=== PATIENT | male | born 1955 | race Caucasian/White ===

== ENCOUNTER 2017-04-08 17:07 | Inpatient (IN) | payer MEDICARE, MEDICAID ==
[~2017-04-08] VITALS: Ht 188 cm; Wt 88.5 kg
[2017-04-08] MEDS ORDERED: ARIP30TA3 PO (17:26)
[2017-04-08] MEDS ORDERED: CYAN10009 PO (17:26)
[2017-04-08] MEDS ORDERED: DIVA500T2 PO (17:26)
[2017-04-08] MEDS ORDERED: MULT-213 PO (17:26)
[2017-04-08] MEDS ORDERED: HYDR50CA PO (17:26)
[2017-04-08] MEDS ORDERED: ACET-868 PO (17:26)
[2017-04-08] MEDS ORDERED: TEMA30CA5 PO (17:26)
[2017-04-08] MEDS ORDERED: TRIA1CAP6 PO (17:26)
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
[2017-04-08 17:52] VITALS: BP 155/69
[2017-04-08] MEDS ORDERED: MAGNESIUM HYDROXIDE 30 ML UDC PO PRN (18:00)
[2017-04-08] MEDS ORDERED: MAG HYDROX/AL HYDROX/SIMETH 30 ML UDC PO PRN (18:00)
[2017-04-08] MEDS ORDERED: ACETAMINOPHEN 325 MG TABLET PO PRN (18:00)
[2017-04-08] MEDS ORDERED: LORAZEPAM 0.5 MG TABLET PO PRN (18:00)
[2017-04-08 18:18] VITALS: BP 155/69
[2017-04-08 19:47] VITALS: BP 117/62
--- NOTE | 2017-04-09 01:42 | NUR ---
Pt has been withdrawn & evasive but interacts when engaged.
[2017-04-09] MEDS: ACETAMINOPHEN 325 MG TABLET PO PRN ×2 (02:23→17:45)
[2017-04-09] MEDS: TEMAZEPAM 7.5 MG CAPSULE PO PRN (02:23)
[2017-04-09 06:53] LABS: CHOLESTEROL 156 mg/dL (<200); HDL CHOLESTEROL 42 mg/dL (40-60); LDL 101 mg/dL (0-99); TRIGLYCERIDES 74 mg/dL (30-150)
[2017-04-09 06:59] LABS: ALBUMIN 2.3 g/dL (3.4-5.0); BILIRUBIN,TOTAL 0.4 mg/dL (0.2-1.0); CALCIUM, SERUM 8.4 mg/dL (8.5-10.1); CREATININE 0.6 mg/dL (0.6-1.3); TOTAL PROTEIN, SERUM 6.2 g/dL (6.4-8.2)
[2017-04-09 08:00] VITALS: BP 111/53
[2017-04-09] MEDS: TRIAMTERENE/HYDROCHLOROTHIAZID (37.5/25MG) 1 UDCAP PO SCH (08:30)
[2017-04-09] MEDS: CYANOCOBALAMIN 500 MCG TABLET PO SCH (08:30)
[2017-04-09] MEDS: MULTIVIT, IRON, MIN NO. 8, FA 1 TAB PO SCH (08:30)
[2017-04-09 16:00] VITALS: BP 133/81
--- NOTE | 2017-04-09 16:00 | NUR ---
GPS/RN PATIENT NOTED WITH REDNESS/RASH ON BACK, WOUND CONSULT ORDERED, PICTURE TAKEN.
[2017-04-09] MEDS: BENZTROPINE MESYLATE (1 MG) 1 MG TABLET PO SCH (16:38)
[2017-04-09] MEDS: HALOPERIDOL 5 MG TABLET PO SCH (16:39)
--- NOTE | 2017-04-09 16:39 | NUR ---
GPS/RN PATIENT REFUSED HALDOL 5 MG PO AND COGENTIN 1 MG PO X 3, EXPLAINED RISKS AND BENEFITS, WILL CONTINUE TO ENCOURAGE TO COMPLY WITH MD REGIMEN.
[2017-04-09 20:06] VITALS: BP 108/73
[2017-04-10] MEDS: ACETAMINOPHEN 325 MG TABLET PO PRN (06:14)
[2017-04-10 08:00] VITALS: BP 146/67
[2017-04-10] MEDS: MULTIVIT, IRON, MIN NO. 8, FA 1 TAB PO SCH (08:22)
[2017-04-10] MEDS: CYANOCOBALAMIN 500 MCG TABLET PO SCH (08:22)
[2017-04-10] MEDS: TRIAMTERENE/HYDROCHLOROTHIAZID (37.5/25MG) 1 UDCAP PO SCH (08:22)
[2017-04-10] MEDS: BENZTROPINE MESYLATE (1 MG) 1 MG TABLET PO SCH ×2 (09:00→16:37)
[2017-04-10] MEDS: HALOPERIDOL 5 MG TABLET PO SCH ×2 (09:00→16:37)
--- NOTE | 2017-04-10 12:15 | NUR ---
WOUND CARE CONSULT WOUND CARE RECEIVED CONSULT FOR BACK RASH. WOUND CARE WILL DEFER TO MD FOR THE RASH. ALL DISCUSSED WITH RN.
[2017-04-10 20:00] VITALS: BP 117/56
[2017-04-10 23:00] VITALS: BP 120/62
--- NOTE | 2017-04-11 08:45 | NUR ---
Initial Discharge Note: Patient states that the address listed on facesheet [[address] [place] [address]] is his mother's house and that he lived their with her until she recently. Patient states that he then moved to a board and care, but cannot recall address.. Patient does not wish to return there. Patient states that he wants to live in another board and care, preferably in the [facility]. Patient to follow up with MD and facilitate safe and proper discharge.
[2017-04-11] MEDS: CYANOCOBALAMIN 500 MCG TABLET PO SCH ×2 (09:00→09:01)
[2017-04-11] MEDS: TRIAMTERENE/HYDROCHLOROTHIAZID (37.5/25MG) 1 UDCAP PO SCH (09:00)
[2017-04-11] MEDS: MULTIVIT, IRON, MIN NO. 8, FA 1 TAB PO SCH (09:00)
[2017-04-11] MEDS: HALOPERIDOL 5 MG TABLET PO SCH ×2 (09:00→17:00)
[2017-04-11] MEDS: BENZTROPINE MESYLATE (1 MG) 1 MG TABLET PO SCH ×2 (09:00→17:00)
--- NOTE | 2017-04-11 10:27 | NUR ---
Discharge Planning: ZORAIDA contacted Johnny from [employer], a free placement referral agency. ZORAIDA asked Johnny if she will be able to assess patient and connect him with a board and care. Johnny stated that she will assess this week and that the agency had already begun making calls to lower-income board and cares. SW to follow up.
[2017-04-11 11:21] VITALS: BP 119/72
--- NOTE | 2017-04-11 13:56 | NUR ---
Discharge Planning: ZORAIDA spoke with Junaid, who manages several board and cares and assisted living facility. ZORAIDA provided some background on the patient. Junaid stated that he will assess patient this week and that he has several facilities that will be able to accommodate patient on his current income.
[2017-04-11 16:00] VITALS: BP 123/98
[2017-04-11] MEDS: ACETAMINOPHEN 325 MG TABLET PO PRN (16:56)
--- NOTE | 2017-04-11 17:07 | NUR ---
patient c/o back pain level 8/10 Tylenol 650mg given with continue to monitor .
[2017-04-11 20:55] VITALS: BP 118/70
[2017-04-11] MEDS: TEMAZEPAM 7.5 MG CAPSULE PO PRN (21:10)
[2017-04-12] MEDS: ACETAMINOPHEN 325 MG TABLET PO PRN (00:44)
--- NOTE | 2017-04-12 00:44 | NUR ---
GPS RN NOTE, PATIENT HAS A COMPLAINT OF LOWER BACK PAIN AT 5 OUT 10 ON THE PAIN SCALE AND IS REQUESTING TYLENOL AT THIS TIME. PATIENT VITAL SIGNS ARE STABLE. GAVE TYLENOL 650 MG PO Q6HR PRN ORDERED. WILL REASSESS PAIN AND I WILL CONTINUE TO MONITOR THIS PATIENT.
--- NOTE | 2017-04-12 00:54 | NUR ---
GPS RN NOTE, PATIENT HAS A COMPLAINT OF LOWER BACK PAIN AT 8 OUT 10 ON THE PAIN SCALE AND IS REQUESTING SOMETHING STRONGER THAN TYLENOL. PAGED [facility] AND INFORMED DR ZALDIVAR OF MY FINDINGS. DR ZALDIVAR ORDERED TRAMADOL 50 MG PO Q8HR PRN. ALL ORDERS NOTED AND CARRIED OUT WILL CONTINUE TO MONITOR THIS PATIENT.
[2017-04-12] MEDS ORDERED: TRAMADOL HCL 50 MG TABLET ONE (00:59)
[2017-04-12] MEDS: TRAMADOL HCL 50 MG TABLET PO PRN ×2 (01:01→09:57)
--- NOTE | 2017-04-12 01:01 | NUR ---
GPS RN NOTE, PATIENT HAS A COMPLAINT OF CHRONIC LOWER BACK PAIN AT 7 OUT 10 ON THE PAIN SCALE. PATIENT VITAL SIGNS ARE STABLE. GAVE TRAMADOL 50 MG PO Q8HR PRN ORDERED. WILL REASSESS PAIN AND I WILL CONTINUE TO MONITOR THIS PATIENT.
[2017-04-12] MEDS: BENZTROPINE MESYLATE (1 MG) 1 MG TABLET PO SCH ×2 (08:10→17:36)
[2017-04-12] MEDS: TRIAMTERENE/HYDROCHLOROTHIAZID (37.5/25MG) 1 UDCAP PO SCH (08:10)
[2017-04-12] MEDS: HALOPERIDOL 5 MG TABLET PO SCH ×2 (08:11→17:36)
[2017-04-12] MEDS: CYANOCOBALAMIN 500 MCG TABLET PO SCH (08:11)
[2017-04-12] MEDS: MULTIVIT, IRON, MIN NO. 8, FA 1 TAB PO SCH (08:11)
[2017-04-12 08:22] VITALS: BP 132/80
--- NOTE | 2017-04-12 09:57 | NUR ---
GPS/RN PATIENT REPORTS 7/10 PAIN IN LOWER BACK, ADMINISTERED TRAMADOL 50 MG PER PATIENT REQUEST. WILL CONTINUE TO MONITOR.
[2017-04-12] MEDS ORDERED: HALOPERIDOL LACTATE INJ 5 MG/ML VIAL IM PRN (15:00)
[2017-04-12] MEDS ORDERED: BENZTROPINE MESYLATE (2MG/2ML) 2 MG/2 ML AMPUL IM PRN (15:00)
[2017-04-12 16:42] VITALS: BP 127/64
[2017-04-12 19:49] VITALS: BP 119/65
[2017-04-12 20:00] VITALS: BP 119/65
[2017-04-13] MEDS: TEMAZEPAM 7.5 MG CAPSULE PO PRN (00:49)
[2017-04-13] MEDS: TRAMADOL HCL 50 MG TABLET PO PRN ×2 (00:49→18:14)
[2017-04-13 08:00] VITALS: BP 106/66
[2017-04-13] MEDS: HALOPERIDOL 5 MG TABLET PO SCH ×2 (10:49→17:10)
[2017-04-13] MEDS: MULTIVIT, IRON, MIN NO. 8, FA 1 TAB PO SCH (10:49)
[2017-04-13] MEDS: CYANOCOBALAMIN 500 MCG TABLET PO SCH (10:50)
[2017-04-13] MEDS: BENZTROPINE MESYLATE (1 MG) 1 MG TABLET PO SCH ×2 (10:50→18:13)
[2017-04-13] MEDS: TRIAMTERENE/HYDROCHLOROTHIAZID (37.5/25MG) 1 UDCAP PO SCH (10:50)
[2017-04-13 15:42] VITALS: BP 111/66
[2017-04-13 20:00] VITALS: BP 101/56
[2017-04-14] MEDS: TRAMADOL HCL 50 MG TABLET PO PRN (07:59)
[2017-04-14] MEDS: CYANOCOBALAMIN 500 MCG TABLET PO SCH (08:00)
[2017-04-14] MEDS: TRIAMTERENE/HYDROCHLOROTHIAZID (37.5/25MG) 1 UDCAP PO SCH (08:01)
[2017-04-14] MEDS: HALOPERIDOL 5 MG TABLET PO SCH ×2 (08:01→17:28)
[2017-04-14] MEDS: BENZTROPINE MESYLATE (1 MG) 1 MG TABLET PO SCH ×2 (08:01→17:27)
[2017-04-14] MEDS: MULTIVIT, IRON, MIN NO. 8, FA 1 TAB PO SCH (08:01)
[2017-04-14 08:23] VITALS: BP 122/73
[2017-04-14 16:00] VITALS: BP 123/70
[2017-04-14 20:00] VITALS: BP 138/76
[2017-04-15 08:00] VITALS: BP 113/77
[2017-04-15] MEDS: BENZTROPINE MESYLATE (1 MG) 1 MG TABLET PO SCH ×2 (08:26→16:30)
[2017-04-15] MEDS: CYANOCOBALAMIN 500 MCG TABLET PO SCH (08:26)
[2017-04-15] MEDS: TRIAMTERENE/HYDROCHLOROTHIAZID (37.5/25MG) 1 UDCAP PO SCH (08:26)
[2017-04-15] MEDS: HALOPERIDOL 5 MG TABLET PO SCH ×2 (08:27→16:30)
[2017-04-15] MEDS: MULTIVIT, IRON, MIN NO. 8, FA 1 TAB PO SCH (08:27)
[2017-04-15] MEDS: TRAMADOL HCL 50 MG TABLET PO PRN (11:00)
--- NOTE | 2017-04-15 13:14 | NUR ---
Received pt. asleep in bed, breathing is even and unlabored. No distress and no agitation noted. Will continue to monitor for safety.
[2017-04-15 16:00] VITALS: BP 101/64
--- NOTE | 2017-04-15 19:30 | NUR ---
GPS RN NOTE, RECEIVED PATIENT AWAKE AND IN BED, NO S/S OR COMPLAINTS OF PAIN AT THIS TIME. PATIENT IS DISPLAYING NO S/S OF APPARENT DISTRESS AT THIS TIME. PATIENT BREATHING IS UNLABORED WITH EQUAL RISE AND FALL OF THE CHEST. PATIENT IS ALERT AND ORIENTED X2 ON ROOM AIR WITH A SPO2 OF 96 %. PATIENT IS MED COMPLAINT, DISORGANIZED, ANXIOUS AT TIMES, ISOLATIVE, AND NEEDS REORIENTATION. PATIENT DENIES SUICIDE IDEATIONS AND HOMICIDAL IDEATIONS AT THIS TIME. PATIENT ASSISTED WITH TURNING AND REPOSITIONING Q2HR AND PRN FOR COMFORT AND CIRCULATION. PATIENT HAS NO NEEDS AT THIS TIME. PATIENT EDUCATED ON THE USE OF THE CALL SANABRIA. PATIENT SIDE RAILS ARE UP X 2, BED IS LOCKED AND LOW, AND I WILL CONTINUE TO MONITOR THIS PATIENT Q 15 MIN WITH THE HELP OF STAFF.
[2017-04-15 20:05] VITALS: BP 119/53
[2017-04-16] MEDS: TEMAZEPAM 7.5 MG CAPSULE PO PRN ×2 (02:28→22:30)
--- NOTE | 2017-04-16 02:28 | NUR ---
GPS RN NOTE, PATIENT HAS A COMPLAINT OF NOT BEING ABLE TO SLEEP AND IS REQUESTING RESTORIL AT THIS TIME. PATIENT VITAL SIGNS ARE STABLE. GAVE RESTORIL 7.5MG PO HS ORDERED. WILL REASSESS FOR INSOMNIA AND I WILL CONTINUE TO MONITOR THIS PATIENT.
[2017-04-16 08:00] VITALS: BP 128/77
[2017-04-16] MEDS: MULTIVIT, IRON, MIN NO. 8, FA 1 TAB PO SCH (08:59)
[2017-04-16] MEDS: TRIAMTERENE/HYDROCHLOROTHIAZID (37.5/25MG) 1 UDCAP PO SCH (08:59)
[2017-04-16] MEDS: BENZTROPINE MESYLATE (1 MG) 1 MG TABLET PO SCH ×2 (09:00→16:54)
[2017-04-16] MEDS: HALOPERIDOL 5 MG TABLET PO SCH ×2 (09:04→16:54)
[2017-04-16] MEDS: TRAMADOL HCL 50 MG TABLET PO PRN (09:24)
[2017-04-16] MEDS: CYANOCOBALAMIN 500 MCG TABLET PO SCH (09:24)
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
[2017-04-16 16:00] VITALS: BP 100/57
--- NOTE | 2017-04-16 19:30 | NUR ---
GPS RN NOTE, RECEIVED PATIENT AWAKE AND IN BED, NO S/S OR COMPLAINTS OF PAIN AT THIS TIME. PATIENT IS DISPLAYING NO S/S OF APPARENT DISTRESS AT THIS TIME. PATIENT BREATHING IS UNLABORED WITH EQUAL RISE AND FALL OF THE CHEST. PATIENT IS ALERT AND ORIENTED X2 ON ROOM AIR WITH A SPO2 OF 95 %. PATIENT IS MED COMPLAINT, DISORGANIZED, ANXIOUS AT TIMES, ISOLATIVE, AND NEEDS REORIENTATION. PATIENT DENIES SUICIDE IDEATIONS AND HOMICIDAL IDEATIONS AT THIS TIME. PATIENT ASSISTED WITH TURNING AND REPOSITIONING Q2HR AND PRN FOR COMFORT AND CIRCULATION. PATIENT HAS NO NEEDS AT THIS TIME. PATIENT EDUCATED ON THE USE OF THE CALL SANABRIA. PATIENT SIDE RAILS ARE UP X 2, BED IS LOCKED AND LOW, AND I WILL CONTINUE TO MONITOR THIS PATIENT Q 15 MIN WITH THE HELP OF STAFF.
[2017-04-16 20:05] VITALS: BP 127/71
[2017-04-17 08:00] VITALS: BP 123/78
[2017-04-17] MEDS: HALOPERIDOL 5 MG TABLET PO SCH ×2 (09:25→17:14)
[2017-04-17] MEDS: CYANOCOBALAMIN 500 MCG TABLET PO SCH (09:25)
[2017-04-17] MEDS: MULTIVIT, IRON, MIN NO. 8, FA 1 TAB PO SCH (09:26)
[2017-04-17] MEDS: TRIAMTERENE/HYDROCHLOROTHIAZID (37.5/25MG) 1 UDCAP PO SCH (09:26)
[2017-04-17] MEDS: BENZTROPINE MESYLATE (1 MG) 1 MG TABLET PO SCH ×2 (09:26→17:14)
--- NOTE | 2017-04-17 11:15 | NUR ---
Discharge Planning: ZORAIDA contacted Junaid, placement agent for board and cares and confirmed that he will be assessing patient tomorrow for a board and care in the [place] area.
--- NOTE | 2017-04-17 13:55 | NUR ---
RT NOTE PATIENT REFUSED EKG AT THIS TIME. EXPLAINED PROCEDURE. PATIENT STILL REFUSES. Addendum: 04/17/17 at 1403 by LAURA KAN RT NURSE, JENNIFER, NOTIFIED AND IS AWARE.
--- NOTE | 2017-04-17 15:23 | NUR ---
Discharge Planning: SW spoke with patient regarding discharge. Patient agreed to go to board and care in the [place], if one in the city [facility] is not found.
--- NOTE | 2017-04-17 15:34 | NUR ---
discharge planning: ZORAIDA faxed patient's facesheet and history and physical to Junaid to fax #[phone].
[2017-04-17 16:13] VITALS: BP 120/64
--- NOTE | 2017-04-17 19:02 | NUR ---
GPS FLAT SURFACER JEWEL NOTE, PATIENT REFUSED EKG THAT WAS PERFORMED AT 1400. CHARGE NURSE AWARE.
[2017-04-17 19:53] VITALS: BP 127/74
[2017-04-18 07:59] VITALS: BP 131/77
[2017-04-18] MEDS: CYANOCOBALAMIN 500 MCG TABLET PO SCH (08:33)
[2017-04-18] MEDS: MULTIVIT, IRON, MIN NO. 8, FA 1 TAB PO SCH (08:33)
[2017-04-18] MEDS: BENZTROPINE MESYLATE (1 MG) 1 MG TABLET PO SCH ×2 (08:33→16:56)
[2017-04-18] MEDS: TRIAMTERENE/HYDROCHLOROTHIAZID (37.5/25MG) 1 UDCAP PO SCH (08:33)
[2017-04-18] MEDS: HALOPERIDOL 5 MG TABLET PO SCH ×2 (08:33→16:56)
--- NOTE | 2017-04-18 10:53 | NUR ---
Discharge Planning: ZORAIDA confirmed with Junaid, , that he will be assessing patient today at 11:30am.
--- NOTE | 2017-04-18 14:23 | NUR ---
discharge Planning: Junaid [phone] met with patient today and discussed various prices for placement. Patient decided on an independent living in the [place]. SW to confirm with Sherley, primary care physician of the independent living.
--- NOTE | 2017-04-18 15:57 | NUR ---
SW was informed by patient that he is missing a personal wheelchair. Patient stated that his wheelchair was at [facility] [address], [place] [address] / and that it was never transferred over to [facility], as promised. SW called the social service department at [facility] ext. [phone]. ZORAIDA left a voicemail with her direct contact information, requesting a call back.
[2017-04-18 16:05] VITALS: BP 119/69
[2017-04-18 20:21] VITALS: BP 107/77
[2017-04-19 08:00] VITALS: BP_SYST 106; BP_SYST 114; BP_DIAS 63; BP_DIAS 75
[2017-04-19] MEDS: MULTIVIT, IRON, MIN NO. 8, FA 1 TAB PO SCH (08:32)
[2017-04-19] MEDS: HALOPERIDOL 5 MG TABLET PO SCH ×2 (08:32→16:35)
[2017-04-19] MEDS: TRIAMTERENE/HYDROCHLOROTHIAZID (37.5/25MG) 1 UDCAP PO SCH (08:32)
[2017-04-19] MEDS: CYANOCOBALAMIN 500 MCG TABLET PO SCH (08:32)
[2017-04-19] MEDS: BENZTROPINE MESYLATE (1 MG) 1 MG TABLET PO SCH ×2 (08:33→16:35)
--- NOTE | 2017-04-19 13:51 | NUR ---
Due to the initial statements made by patient upon admissions [having 15 bombs], the treatment team thought it best to inform the [facility] mental health evaluation unit. ZORAIDA consulted with her supervisor nuclear medicine, Raya Serrato, regarding this issue. ZORAIDA was provided with the number for the [facility] SMART team by her supervisor nuclear medicine. ZORAIDA called the [facility] SMART team, and spoke with Officer Glenys [Job Title: Motor Vehicle Light Assembler 3]. Officer Glenys stated that, since patient is already on a hold, the SMART team cannot intervene. Officer Glenys stated to make sure that the 5250 is documented and is in the system. He then provided SW with a secondary number to call in order to make certain and resolve the issue. The number was for the Crisis Team at [facility]: [phone]. ZORAIDA called and spoke with Fabiola. Fabiola stated that the crisis team only intervenes when patient is not on a current hold. Because patient is already on a hold, he is the hospital's responsibility and no further action is taken by the [facility]. Upon discharge, ZORAIDA will call the local technical solution architect's department and will inform them.
--- NOTE | 2017-04-19 14:06 | NUR ---
Discharge Planning: ZORAIDA called and confirmed with Sherley [phone], the owner/photographer of the independent living facility at [address] [place] [address] [facility] [place] [address], that patient will be discharged on Sunday. Sherley is aware and in agreement with this.
[2017-04-19 16:00] VITALS: BP 122/68
[2017-04-19 20:00] VITALS: BP 117/74
[2017-04-20 08:00] VITALS: BP 118/77
[2017-04-20] MEDS: TRIAMTERENE/HYDROCHLOROTHIAZID (37.5/25MG) 1 UDCAP PO SCH (09:10)
[2017-04-20] MEDS: CYANOCOBALAMIN 500 MCG TABLET PO SCH (09:11)
[2017-04-20] MEDS: HALOPERIDOL 5 MG TABLET PO SCH ×2 (09:11→17:28)
[2017-04-20] MEDS: MULTIVIT, IRON, MIN NO. 8, FA 1 TAB PO SCH (09:11)
[2017-04-20] MEDS: BENZTROPINE MESYLATE (1 MG) 1 MG TABLET PO SCH ×2 (09:19→17:28)
--- NOTE | 2017-04-20 11:56 | NUR ---
ZORAIDA received a call back from the social service department at [facility] ext. [phone]. ZORAIDA was informed that patient does have a personal wheelchair there and that the hospital was unable to transfer is because "it didn't fit" in the vehicle. ZORAIDA was informed that the hospital is unable to transfer the wheelchair and that [facility] should facilitate that. SW to consult with her supervisor transferring and boxing.
[2017-04-20 16:07] VITALS: BP 105/75
[2017-04-20 20:00] VITALS: BP 119/70
[2017-04-21 08:00] VITALS: BP 115/71
[2017-04-21] MEDS: HALOPERIDOL 5 MG TABLET PO SCH ×2 (08:51→16:59)
[2017-04-21] MEDS: CYANOCOBALAMIN 500 MCG TABLET PO SCH (08:51)
[2017-04-21] MEDS: MULTIVIT, IRON, MIN NO. 8, FA 1 TAB PO SCH (08:51)
[2017-04-21] MEDS: BENZTROPINE MESYLATE (1 MG) 1 MG TABLET PO SCH ×2 (08:51→16:59)
[2017-04-21] MEDS: TRIAMTERENE/HYDROCHLOROTHIAZID (37.5/25MG) 1 UDCAP PO SCH (08:52)
[2017-04-21] MEDS ORDERED: NAPROXEN 250 MG TABLET PO PRN (12:00)
[2017-04-21 16:00] VITALS: BP 114/65
[2017-04-21 20:00] VITALS: BP 111/73
[2017-04-22 08:06] VITALS: BP 113/77
[2017-04-22] MEDS: BENZTROPINE MESYLATE (1 MG) 1 MG TABLET PO SCH ×2 (08:22→17:40)
[2017-04-22] MEDS: CYANOCOBALAMIN 500 MCG TABLET PO SCH (08:22)
[2017-04-22] MEDS: HALOPERIDOL 5 MG TABLET PO SCH ×2 (08:22→17:40)
[2017-04-22] MEDS: TRIAMTERENE/HYDROCHLOROTHIAZID (37.5/25MG) 1 UDCAP PO SCH (08:22)
[2017-04-22] MEDS: MULTIVIT, IRON, MIN NO. 8, FA 1 TAB PO SCH (08:22)
[2017-04-22 16:43] VITALS: BP 109/67
[2017-04-22 19:50] VITALS: BP 115/76
--- NOTE | 2017-04-22 20:21 | NUR ---
RN GPS NOTES PT. REFUSED WEEKLY SKIN REASSESSMENT PICTURES , ENCOURAGED X3 STILL REFUSED.
[2017-04-23 08:00] VITALS: BP 105/71
[2017-04-23 08:36] VITALS: BP 105/71
[2017-04-23] MEDS: BENZTROPINE MESYLATE (1 MG) 1 MG TABLET PO SCH (08:36)
[2017-04-23] MEDS: CYANOCOBALAMIN 500 MCG TABLET PO SCH (08:36)
[2017-04-23] MEDS: MULTIVIT, IRON, MIN NO. 8, FA 1 TAB PO SCH (08:36)
[2017-04-23] MEDS: TRIAMTERENE/HYDROCHLOROTHIAZID (37.5/25MG) 1 UDCAP PO SCH (08:36)
[2017-04-23] MEDS: HALOPERIDOL 5 MG TABLET PO SCH (08:36)
--- NOTE | 2017-04-23 13:45 | NUR ---
GPS/RN PATIENT CLEARED FOR DISCHARGE TO INDEPENDENT LIVING FACILITY BY DR METCALF AND DR PULIDO. BOTH DR'S RECONCILED MEDS AND PRESCRIPTIONS INCLUDED IN PACKET. EXIT CARE PACKET, AFTERCARE PLAN AND PRESCRIPTIONS EXPLAINED TO PATIENT, VERBALIZED UNDERSTANDING. PATIENT REFUSED TO GIVE ANY PHARMACY INFORMATION, PATIENT WAS INSTRUCTED TO GET PRESCRIPTIONS FILLED SOON POSSIBLE AT PHARMACY OF HIS CHOICE, VERBALIZED UNDERSTANDING. BELONGINGS AND VALUABLES RETURNED TO PATIENT, BELONGINGS FORM SIGNED BY PATIENT. PATIENT REFUSED D/C PHOTOS, PATIENT DENIES ANY SI/HI/AH UPON DISCHARGE, PSYCHIATRIC TREATMENT PLANS MET, LEFT UNIT CALM, COOPERATIVE NO DISTRESS WITH SPANISH TEACHER AT SIDE, LEFT HOSPITAL VIA TAXI.
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
--- NOTE | 2017-04-24 08:45 | NUR ---
ZORAIDA [facility] [phone] / fax #[phone]
== END 2017-04-23 13:15 | disposition home health service (06) | DRG 885 ==
LOC: GPS 17:07
PROVIDERS: ADMIT Psychiatry & Neurology Psychosomatic Medicine; ATTEND Internal Medicine
DX: F25.0 Schizoaffective disorder, bipolar type (principal); E11.9 Type 2 diabetes mellitus without complications; Z59.0 Homelessness; F41.9 Anxiety disorder, unspecified; I10 Essential (primary) hypertension; Z79.899 Other long term (current) drug therapy
CPT/HCPCS: 36415; 80048-TC; 80053-TC; 80061-TC; J0515; J1630

== ENCOUNTER 2017-08-02 22:14 | Inpatient (IN) | payer MEDICARE, MEDICAID ==
[~2017-08-02] VITALS: Ht 182.9 cm; Wt 94.3 kg
[~2017-08-02 22:14] MED LIST: ACET-868 PO; CYAN10009 PO; MULT-213 PO; TRIA1CAP6 PO
--- NOTE | 2017-08-02 22:30 | NUR ---
JESE KULKARNI FOR PSYCH EVAL, INCREASED AGITATION, THREATENING STAFF. NOTED EXTREMELY ANXIOUS. THINKS OF HIMSELF "DIRTY", HOLDS A BOTTLE OF WATER AND SPRAYS SELF FOR "CLEANING". DIRECTABLE. VSS. SEEN BY MD FOR EVAL. SAFETY AND COMFORT MEASURES PROVIDED. WILL MONITOR.
[2017-08-02 22:53] LABS: BASOPHILS # (AUTO) 0.1 /CMM (0.0-0.2); BASOPHILS % (AUTO) 0.9 % (0.0-2.0); EOSINOPHILS % (AUTO) 2.3 % (0.0-6.0); HEMATOCRIT 38 % (39-51); HEMOGLOBIN 12.5 g/dL (13.5-17.5); LYMPHOCYTES % (AUTO) 28.6 % (20.0-44.0); MEAN CORPUSCULAR HGB CONC 33 g/dl (31.0-36.0); MEAN CORPUSCULAR VOLUME 94 fL (80-96); MONOCYTES # (AUTO) 0.6 /CMM (0.1-1.30); NEUTROPHILS # (AUTO) 4.2 /CMM (1.8-8.9); NEUTROPHILS % (AUTO) 59.2 % (43.0-81.0); PLATELET COUNT (AUTO) 405 /CMM (150-450); RDW COEFFICIENT OF VARIATION 14.7 (11.5-15.0); RED BLOOD CELL COUNT(AUTO) 4.01 MIL/uL (4.5-6.0); WHITE BLOOD COUNT (AUTO) 7.1 K/uL (4.3-11.0)
[2017-08-02 23:34] LABS: CALCIUM, SERUM 9.4 mg/dL (8.5-10.1); CARBON DIOXIDE 30 mmol/L (21-32); CHLORIDE 105 mmol/L (98-107); CREATININE 0.8 mg/dL (0.6-1.3); GLUCOSE 98 mg/dL (74-106); POTASSIUM 4.5 mmol/L (3.5-5.1); SODIUM SERUM 140 mmol/L (136-145); UREA NITROGEN, BLOOD 21 mg/dL (7-18)
[2017-08-02 23:40] LABS: ACETAMINOPHEN 0 ug/ml (10-30); ALANINE AMINOTRANSFERASE 47 U/L (12-78); ALBUMIN 3.3 g/dL (3.4-5.0); ALCOHOL, BLOOD < 3 mg/dL (0-0); ALKALINE PHOSPHATASE 96 U/L (46-116); ASPARTATE AMINOTRANSFERASE 43 U/L (15-37); BILIRUBIN,DIRECT 0.1 mg/dL (0.0-0.2); BILIRUBIN,TOTAL 0.2 mg/dL (0.2-1.0); SALICYLATE 1.3 mg/dL (2.8-20.0); TOTAL PROTEIN, SERUM 8.4 g/dL (6.4-8.2)
--- NOTE | 2017-08-02 23:43 | NUR ---
LAZARA GARNICA LCSW AT BS FOR EVAL.
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
--- NOTE | 2017-08-03 01:09 | NUR ---
PATIENT WILL GO TO TEA
[2017-08-03] MEDS ORDERED: OLANZAPINE 10 MG VIAL IM ONE ×2 (01:30→01:39)
--- NOTE | 2017-08-03 01:53 | NUR ---
report given to vinicio for joann
--- NOTE | 2017-08-03 02:15 | NUR ---
GPS ADMISSION NOTE, RECEIVED PATIENT FROM [facility] / [facility]. PATIENT ARRIVED ON THIS UNIT AT 0215 VIA WHEELCHAIR WITH 1 ESCORT. PATIENT ADMITTED ON A 5150 HOLD DUE TO ERRATIC BEHAVIOR. PER HOLD PATIENT IS DISORIENTED, CONFUSED, DISORGANIZED, AND MANIC. THE 5150 WAS REVIEWED AND THE HOLD DOCUMENTATION APPEARS TO REFLECT THE PRESENTATION OF THE PATIENT. UPON FACE TO FACE ASSESSMENT PATIENT IS CURRENTLY LYING IN BED AWAKE, COMPLAINING 8/10 OF PAIN. PATIENT IS TAKING ORAL PAIN MEDS FOR HIS CONDITION. NO S/S OF APPARENT DISTRESS NOTED. UNLABORED WITH EQUAL RISE AND FALL OF THE CHEST. PATIENT IS ALERT AND ORIENTATED X 3 ON ROOM AIR. PATIENT ASSISTED WITH TURING AND REPOSITIONING Q2HR AND PRN FOR COMFORT AND CIRCULATION. PATIENT IS NOTED TO BEING DEPRESSED, DISHEVELED, DISORGANIZED, COOPERATIVE, WITH LABILE MOOD AND NEEDS REDIRECTION. PATIENT IS UNDER THE PSYCHIATRIC CARE OF DR. JACKSON AND THE MEDICAL CARE OF DR GIBSON. PATIENT BELONGINGS WERE INVENTORIED AND CHECKED FOR CONTRABANDS. ALL CONTRABAND REMOVED AND STORED IN PATIENT HALLWAY LOCKER. PATIENT ADVANCED DIRECTIVES PREFERENCE, IMMUNIZATIONS QUESTIONER, NECESSARY PAPERWORK, AND SKIN ASSESSMENT COMPLETED. PATIENT ORIENTATED TO ROOM, FLOOR, AND STAFF WITH ALL QUESTIONS ANSWERED. PATIENT EDUCATED ON THE USE OF THE CALL SANABRI[place]. PATIENT BED SIDE RAILS ARE UP X 2 FOR SAFETY. PATIENT BED IS LOCKED, LOW AND I WILL CONTINUE TO MONITOR THIS PATIENT Q 15 MIN WITH THE HELP OF STAFF TO MAINTAIN SAFETY.
[2017-08-03] MEDS ORDERED: TEMAZEPAM 7.5 MG CAPSULE PO PRN (03:00)
[2017-08-03] MEDS ORDERED: LORAZEPAM 0.5 MG TABLET PO PRN (03:00)
[2017-08-03] MEDS ORDERED: MAG HYDROX/AL HYDROX/SIMETH 30 ML UDC PO PRN (03:00)
[2017-08-03] MEDS ORDERED: MAGNESIUM HYDROXIDE 30 ML UDC PO PRN (03:00)
[2017-08-03 03:34] VITALS: BP 132/86
[2017-08-03] MEDS: LORAZEPAM 1 MG TABLET PO PRN (06:36)
--- NOTE | 2017-08-03 07:45 | NUR ---
RN-CO: PATIENT IS UNPREDICTABLE, POOR BOUNDARIES, NON REDIRECTABLE, AND THREATENING STAFF. THREW THE TRASH IN THE HALLWAY. SPITTING AND BELIEVES HE IS SPITTING BLOOD. CALLED DR JACKSON AND ORDERED ZYPREXA 10 MG AND ATIVAN 1 MG IM STAT, NOTED.
[2017-08-03] MEDS ORDERED: MAG30ORA PO (07:50)
[2017-08-03] MEDS ORDERED: MAGN400O6 PO (07:50)
[2017-08-03] MEDS ORDERED: TEMA7.5C12 PO (07:50)
[2017-08-03] MEDS ORDERED: OLAN5TAB3 PO (07:50)
[2017-08-03] MEDS ORDERED: CLON0.5T PO (07:50)
[2017-08-03 08:00] VITALS: BP 128/87
[2017-08-03] MEDS ORDERED: OLANZAPINE 10 MG VIAL IM STA (08:03)
[2017-08-03] MEDS ORDERED: LORAZEPAM INJ 2 MG/ML VIAL IM STA (08:03)
--- NOTE | 2017-08-03 08:30 | NUR ---
RN-CO: PATIENT REMAINS AGITATED, NON REDIRECTABLE, DELUSIONAL (TALKING ABOUT OUTER SPACE). PACING IN THE HALLWAY.
[2017-08-03] MEDS: NICOTINE PATCH (21MG) 21 MG PATCH.TD24 TD SCH (09:19)
[2017-08-03] MEDS ORDERED: HALOPERIDOL LACTATE INJ 5 MG/ML VIAL IM ONE (10:30)
[2017-08-03] MEDS ORDERED: diphenhydrAMINE HCL 50 MG/ML VIAL IM ONE (10:30)
[2017-08-03] MEDS: HALOPERIDOL 1 MG TABLET PO SCH ×3 (13:00→21:25)
--- NOTE | 2017-08-03 13:00 | NUR ---
GPS/RN PT IS SLEEPING IN HIS ROOM REFUSED TO TAKE MEDS SCHEDULED FOR 1300
[2017-08-03] MEDS: diphenhydrAMINE HCL 25 MG CAPSULE PO SCH (16:52)
[2017-08-03 20:00] VITALS: BP 108/59
[2017-08-03] MEDS: DIVALPROEX SODIUM 250 MG TABLET.DR PO SCH (21:25)
[2017-08-04 06:16] LABS: BASOPHILS # (AUTO) 0.1 /CMM (0.0-0.2); BASOPHILS % (AUTO) 1.1 % (0.0-2.0); EOSINOPHILS % (AUTO) 3.9 % (0.0-6.0); HEMATOCRIT 34 % (39-51); HEMOGLOBIN 11.2 g/dL (13.5-17.5); LYMPHOCYTES # (AUTO) 2.1 /CMM (0.8-4.8); LYMPHOCYTES % (AUTO) 35.6 % (20.0-44.0); MEAN CORPUSCULAR HGB CONC 33 g/dl (31.0-36.0); MEAN CORPUSCULAR VOLUME 94 fL (80-96); MONOCYTES # (AUTO) 0.6 /CMM (0.1-1.30); MONOCYTES % (AUTO) 10.5 % (2.0-12.0); NEUTROPHILS # (AUTO) 2.9 /CMM (1.8-8.9); NEUTROPHILS % (AUTO) 48.9 % (43.0-81.0); PLATELET COUNT (AUTO) 381 /CMM (150-450); RDW COEFFICIENT OF VARIATION 14.7 (11.5-15.0); RED BLOOD CELL COUNT(AUTO) 3.57 MIL/uL (4.5-6.0); WHITE BLOOD COUNT (AUTO) 5.9 K/uL (4.3-11.0)
[2017-08-04 06:35] LABS: ALBUMIN 2.5 g/dL (3.4-5.0); BILIRUBIN,TOTAL 0.3 mg/dL (0.2-1.0); CALCIUM, SERUM 8.7 mg/dL (8.5-10.1); CREATININE 0.8 mg/dL (0.6-1.3); POTASSIUM 4.4 mmol/L (3.5-5.1); TOTAL PROTEIN, SERUM 6.7 g/dL (6.4-8.2)
[2017-08-04 06:37] LABS: CHOLESTEROL 162 mg/dL (<200); HDL CHOLESTEROL 36 mg/dL (40-60); LDL 106 mg/dL (0-99); TRIGLYCERIDES 92 mg/dL (30-150)
[2017-08-04] MEDS: diphenhydrAMINE HCL 25 MG CAPSULE PO SCH ×2 (08:14→17:26)
[2017-08-04] MEDS: DIVALPROEX SODIUM 250 MG TABLET.DR PO SCH ×2 (08:14→21:48)
[2017-08-04] MEDS: NICOTINE PATCH (21MG) 21 MG PATCH.TD24 TD SCH (08:14)
[2017-08-04] MEDS: HALOPERIDOL 1 MG TABLET PO SCH ×4 (08:14→21:48)
[2017-08-04 08:22] VITALS: BP 125/67
[2017-08-04] MEDS: MENTHOL/CETYLPYRD (CEPACOL) 1 LOZ LOZENGE PO PRN ×4 (12:21→22:56)
[2017-08-04] MEDS: ACETAMINOPHEN 325 MG TABLET PO PRN ×2 (14:09→19:25)
[2017-08-04 15:48] VITALS: BP 123/73
[2017-08-04 20:00] VITALS: BP 113/70
[2017-08-04] MEDS: ZOLPIDEM TARTRATE 5 MG TABLET PO PRN (21:48)
[2017-08-05] MEDS: MENTHOL/CETYLPYRD (CEPACOL) 1 LOZ LOZENGE PO PRN ×5 (02:57→19:22)
[2017-08-05] MEDS: ACETAMINOPHEN 325 MG TABLET PO PRN ×2 (02:58→08:56)
[2017-08-05 08:00] VITALS: BP 139/60
[2017-08-05] MEDS: HALOPERIDOL 1 MG TABLET PO SCH (08:50)
[2017-08-05] MEDS: NICOTINE PATCH (21MG) 21 MG PATCH.TD24 TD SCH (08:50)
[2017-08-05] MEDS: diphenhydrAMINE HCL 25 MG CAPSULE PO SCH ×2 (08:50→16:53)
[2017-08-05] MEDS: DIVALPROEX SODIUM 250 MG TABLET.DR PO SCH ×2 (08:50→20:41)
[2017-08-05] MEDS: LORAZEPAM 1 MG TABLET PO PRN (09:17)
[2017-08-05] MEDS: NAPROXEN 250 MG TABLET PO SCH ×3 (10:46→16:53)
[2017-08-05 13:26] LABS: IRON, SERUM 69 ug/dl (50-175); TOTAL IRON BINDING CAPACITY 225 ug/dl (250-450)
[2017-08-05 16:00] VITALS: BP 146/87
--- NOTE | 2017-08-05 16:47 | NUR ---
Initial Evaluation: Patiently was homeless before residing at [facility] ([address] [place] [phone]). However pt. reports that he does not want to go back to [facility] and wants to go to [address] [address]([phone]). Patient left message for [facility] Jaun Quesada and was unable to hear back from him. SW will follow up with MD, patient, and Jaun Quesada ([phone]). SW will form a safe and proper discharge.
[2017-08-05] MEDS: HALOPERIDOL 5 MG TABLET PO SCH (16:54)
--- NOTE | 2017-08-05 19:22 | NUR ---
C/O SORE THROAT, CEPACOL 1 LOZENGE PO GIVEN.
[2017-08-05] MEDS: ZOLPIDEM TARTRATE 5 MG TABLET PO PRN (20:42)
--- NOTE | 2017-08-05 20:43 | NUR ---
AMBIEN 5 MG TAB 1 PO GIVEN FOR SLEEP PER PATIENT'S REQUEST
[2017-08-05 21:51] VITALS: BP 114/65
[2017-08-06] MEDS: MENTHOL/CETYLPYRD (CEPACOL) 1 LOZ LOZENGE PO PRN ×4 (03:37→20:21)
--- NOTE | 2017-08-06 03:37 | NUR ---
GPS RN NOTE, PATIENT HAS A COMPLAINT OF A SORE THROAT AND IS REQUESTING CEPACOL AT THIS TIME. PATIENT VITAL SIGNS ARE STABLE. GAVE CEPACOL SORE THROAT LOZENGE 1 ROBBIE PO Q2HR PRN ORDERED. WILL REASSESS PAIN AND I WILL CONTINUE TO MONITOR THIS PATIENT.
[2017-08-06] MEDS: LORAZEPAM 1 MG TABLET PO PRN (03:48)
--- NOTE | 2017-08-06 03:49 | NUR ---
GPS RN NOTE, PATIENT HAS A COMPLAINT OF FEELING ANXIOUS AND IS REQUESTING ATIVAN AT THIS TIME. PATIENT VITAL SIGN ARE STABLE. GAVE ATIVAN 1MG PO Q8HR PRN ORDERED. WILL REASSESS FOR ANXIETY AND I WILL CONTINUE TO MONITOR THIS PATIENT.
--- NOTE | 2017-08-06 04:07 | NUR ---
GPS RN NOTE, PATIENT HAS A COMPLAINT OF LOWER BACK PAIN AT 4 OUT 10 ON THE PAIN SCALE AT THIS TIME AND IS REQUESTING PAIN MEDICATION AT THIS TIME. PAGED [facility] AND INFORMED DR GIBSON OF MY FINDINGS. DR GIBSON ORDERED IBUPROFEN 600MG PO ONCE. ALL ORDERS NOTED AND CARRIED OUT WILL CONTINUE TO MONITOR THIS PATIENT.
[2017-08-06] MEDS ORDERED: IBUPROFEN 600 MG TABLET PO ONE (04:30)
[2017-08-06 08:23] VITALS: BP 136/77
[2017-08-06] MEDS: NAPROXEN 250 MG TABLET PO SCH ×3 (08:32→16:28)
[2017-08-06] MEDS: NICOTINE PATCH (21MG) 21 MG PATCH.TD24 TD SCH (08:32)
[2017-08-06] MEDS: DIVALPROEX SODIUM 250 MG TABLET.DR PO SCH ×2 (08:32→20:22)
[2017-08-06] MEDS: HALOPERIDOL 5 MG TABLET PO SCH ×2 (08:32→16:28)
[2017-08-06] MEDS: diphenhydrAMINE HCL 25 MG CAPSULE PO SCH ×2 (08:32→16:28)
[2017-08-06 16:00] VITALS: BP 141/71
[2017-08-06 20:07] VITALS: BP 129/73
[2017-08-06] MEDS: ACETAMINOPHEN 325 MG TABLET PO PRN (20:23)
[2017-08-06] MEDS: ATORVASTATIN 10 MG TABLET PO SCH (21:20)
[2017-08-07] MEDS: MENTHOL/CETYLPYRD (CEPACOL) 1 LOZ LOZENGE PO PRN ×3 (07:11→21:55)
[2017-08-07 08:00] VITALS: BP 131/71
[2017-08-07] MEDS: HALOPERIDOL 5 MG TABLET PO SCH ×2 (08:16→16:55)
[2017-08-07] MEDS: NAPROXEN 250 MG TABLET PO SCH ×3 (08:16→16:56)
[2017-08-07] MEDS: NICOTINE PATCH (21MG) 21 MG PATCH.TD24 TD SCH (08:16)
[2017-08-07] MEDS: diphenhydrAMINE HCL 25 MG CAPSULE PO SCH ×2 (08:16→16:56)
[2017-08-07] MEDS: DIVALPROEX SODIUM 250 MG TABLET.DR PO SCH ×2 (08:16→21:45)
--- NOTE | 2017-08-07 13:09 | NUR ---
SW was in contact with brad Quesada who works with [employer] about patient and his social security.
[2017-08-07] MEDS: LORAZEPAM 1 MG TABLET PO PRN (14:12)
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
--- NOTE | 2017-08-07 15:05 | NUR ---
ZORAIDA contacted Kya [ ] from [facility] where pt was previously. [facility] does not want to take the pt back but will honor the 7 day bed hold. Kya and ZORAIDA agreed to find other placements if possible.
[2017-08-07 16:00] VITALS: BP 149/71
[2017-08-07 20:08] VITALS: BP 155/79
[2017-08-07] MEDS: ATORVASTATIN 10 MG TABLET PO SCH (21:45)
[2017-08-08] MEDS: LORAZEPAM 1 MG TABLET PO PRN ×2 (02:04→19:53)
--- NOTE | 2017-08-08 02:04 | NUR ---
GPS RN NOTES: PATIENT IS VERY AGITATED, INTERMITTENTLY SCREAMING AND YELLING. VSS. ADMINISTERED ATIVAN 1MG PO ORDERED. WILL CONTINUE TO MONITOR Q15MIN ROUNDS FOR SAFETY.
[2017-08-08 08:00] VITALS: BP 150/97
[2017-08-08] MEDS: HALOPERIDOL 5 MG TABLET PO SCH ×2 (08:10→16:08)
[2017-08-08] MEDS: diphenhydrAMINE HCL 25 MG CAPSULE PO SCH ×2 (08:10→16:08)
[2017-08-08] MEDS: NICOTINE PATCH (21MG) 21 MG PATCH.TD24 TD SCH (08:10)
[2017-08-08] MEDS: NAPROXEN 250 MG TABLET PO SCH ×3 (08:10→16:08)
[2017-08-08] MEDS: DIVALPROEX SODIUM 250 MG TABLET.DR PO SCH ×2 (08:10→21:15)
[2017-08-08] MEDS: MENTHOL/CETYLPYRD (CEPACOL) 1 LOZ LOZENGE PO PRN ×3 (08:57→16:08)
[2017-08-08 09:22] LABS: OCCULT BLOOD STOOL NEGATIVE (NEGATIVE)
--- NOTE | 2017-08-08 12:23 | NUR ---
SW faxed a referral for the pt to both Kya [ ] at [facility] and [facility] [ ].
--- NOTE | 2017-08-08 13:40 | NUR ---
SW spoke to Valentina at [facility] about a referral that they received for the pt. Valentina just needs a note from Dr. Dorsey with an updated psych evaluation before accepting the pt.
--- NOTE | 2017-08-08 15:51 | NUR ---
ZORAIDA spoke to Margaret Shirley about the patient wanting to discharge to her facility, [facility]. Margaret stated that they do not want him back and had denied him last week. ZORAIDA and then spoke to the patient and he agreed to the placement that the SW originally found at [facility] [[address] [place] [address], ]. ZORAIDA then faxed over a note from the MD stating that the pt is not having any suicidal or homicidal ideations to Valentina [fax: ].
[2017-08-08 16:00] VITALS: BP 151/76
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
--- NOTE | 2017-08-08 21:00 | NUR ---
GPS RN NOTES PT. REFUSED VITAL SIGNS DURING SHIFT , ENCOURAGED FOR VITAL SIGNS , STILL REFUSED .
[2017-08-08] MEDS: ATORVASTATIN 10 MG TABLET PO SCH (21:15)
[2017-08-09] MEDS: ACETAMINOPHEN 325 MG TABLET PO PRN (01:32)
[2017-08-09] MEDS: MENTHOL/CETYLPYRD (CEPACOL) 1 LOZ LOZENGE PO PRN ×4 (03:01→13:05)
[2017-08-09 08:17] VITALS: BP 141/80
[2017-08-09] MEDS: diphenhydrAMINE HCL 25 MG CAPSULE PO SCH ×3 (08:42→16:29)
[2017-08-09] MEDS: NAPROXEN 250 MG TABLET PO SCH ×3 (08:42→16:29)
[2017-08-09] MEDS: DIVALPROEX SODIUM 250 MG TABLET.DR PO SCH ×2 (08:42→21:11)
[2017-08-09] MEDS: NICOTINE PATCH (21MG) 21 MG PATCH.TD24 TD SCH (08:43)
[2017-08-09] MEDS: HALOPERIDOL 5 MG TABLET PO SCH ×3 (08:43→16:29)
[2017-08-09 16:21] VITALS: BP 151/86
[2017-08-09 20:00] VITALS: BP 139/79
[2017-08-09] MEDS: ZOLPIDEM TARTRATE 5 MG TABLET PO PRN (21:11)
[2017-08-09] MEDS: ATORVASTATIN 10 MG TABLET PO SCH (21:11)
[2017-08-10 08:00] VITALS: BP 133/78
[2017-08-10] MEDS: NICOTINE PATCH (21MG) 21 MG PATCH.TD24 TD SCH (08:05)
[2017-08-10] MEDS: diphenhydrAMINE HCL 25 MG CAPSULE PO SCH (08:05)
[2017-08-10] MEDS: NAPROXEN 250 MG TABLET PO SCH (08:05)
[2017-08-10] MEDS: DIVALPROEX SODIUM 250 MG TABLET.DR PO SCH (08:05)
[2017-08-10] MEDS: HALOPERIDOL 5 MG TABLET PO SCH (08:06)
--- NOTE | 2017-08-10 08:47 | NUR ---
SW spoke to [facility] who confirmed that the patient has been accepted at [facility] [[address] [place] [address], ] and that his department specialist will be Dr. Anthony and his psychiatrist will be Dr. Siddiqui.
[2017-08-10] MEDS: MENTHOL/CETYLPYRD (CEPACOL) 1 LOZ LOZENGE PO PRN (09:33)
--- NOTE | 2017-08-10 12:00 | NUR ---
GPS/RN PT DISCHARGED TO [facility] [id number] VIA AMBULANCE. EXIT CARE AND PRESCRIPTIONS PROVIDED, PROPERTY RETURNED AND ID BAND REMOVED. NO SI OR HI AT THE TIME OF D/C REPORTED. VSS.
--- NOTE | 2017-08-10 13:24 | NUR ---
SW spoke to Valentina at [facility] to update her about when the pt would be arriving at the facility and she informed the SW of what room the patient would be in.
--- NOTE | 2017-08-10 13:25 | NUR ---
Discharge Note: Pt discharged to [address] [address] via [facility] TRIP #[id number] at 11:30am. Pt will be placed in Rm 119B at the facility. Pt denied suicidal/homicidal ideations and denied visual/auditory hallucinations. Pts mood and affect was calm and cooperative at discharge. He was agreeable to this placement. For smoking cessation, patient will be referred to the [employer] or [employer] [id number]. Patient was also referred to the Nicotine Anonymous meeting on [address] [facility] [address] on Monday August 14, 2017 at 7:00 PM. Pt will be under the medical care of Interventional Physician: Dr. Anthony and Psychiatrist: Dr. Siddiqui .
== END 2017-08-10 12:00 | DRG 885 ==
LOC: ER 22:19 → GPS 08-03 01:53
PROVIDERS: ADMIT Psychiatry & Neurology Psychiatry; ATTEND Internal Medicine
DX: F31.2 Bipolar disorder, current episode manic severe with psychotic features (principal); D64.9 Anemia, unspecified; F29 Unspecified psychosis not due to a substance or known physiological condition; I10 Essential (primary) hypertension; F39 Unspecified mood [affective] disorder; G47.00 Insomnia, unspecified; G89.29 Other chronic pain; E78.5 Hyperlipidemia, unspecified; F19.11 Other psychoactive substance abuse, in remission
CPT/HCPCS: 36415; 80048-TC; 80053-TC; 80061-TC; 80076-TC; 80164-TC; 82272-TC; 83540-TC; 85025-TC; 87081-TC; A4606; G0480; J1200; J1630; J2060; J3490; Q0163; Z7610

== ENCOUNTER 2017-08-10 12:17 | Emergency (ER) | payer MEDICARE, MEDICAID ==
[~2017-08-10] VITALS: Ht 182.9 cm; Wt 93.0 kg
[~2017-08-10 12:17] MED LIST changes: -ACET-868 PO; -CYAN10009 PO; +MAG30ORA PO; +MAGN400O6 PO; -MULT-213 PO; -TRIA1CAP6 PO
[2017-08-10] MEDS ORDERED: CLONIDINE HCL 0.1 MG TABLET PO ONE (12:30)
[2017-08-10] MEDS ORDERED: LORAZEPAM 1 MG TABLET PO ONE (12:30)
[2017-08-10] MEDS ORDERED: CLONIDINE HCL 0.1 MG TABLET ONE (12:32)
[2017-08-10] MEDS ORDERED: LORAZEPAM 1 MG TABLET ONE (12:33)
--- NOTE | 2017-08-10 13:01 | NUR ---
Patient discharged to FACILITY VIA BLS ([facility]) in stable condition. Written and verbal after care instructions given. Patient verbalizes understanding of instruction.
[2017-08-10 13:02] VITALS: BP 150/75
== END 2017-08-10 13:10 | disposition home or self-care (01) ==
LOC: ER 12:19
DX: I10 Essential (primary) hypertension (principal); F23 Brief psychotic disorder
CPT/HCPCS: 71045-TC; A4606; Z7610

== ENCOUNTER 2017-10-01 11:49 | Inpatient (IN) | payer MEDICARE, MEDICAID ==
[~2017-10-01] VITALS: Ht 182.9 cm; Wt 96.8 kg
--- NOTE | 2017-10-01 12:13 | NUR ---
KIRT CONCESSION ATTENDANT @ BS. PT BIB BY EMS, PT C/O CP WITH GENERALIZED BODY ACHES, AAOX3, CATRACHITO LEGS SWELLING , DENIES SOB, DIZZINESS, N/V @ THIS TIME. PT STS HE HAS HX OF PSYCH ISSUES. PLACED ON MONITOR, NSR W/O ECTOPY NOTED. PT WILL CONT MONITOR.
[2017-10-01 12:30] LABS: BASOPHILS % (AUTO) 0.3 % (0.0-2.0); EOSINOPHILS % (AUTO) 5.3 % (0.0-6.0); HEMATOCRIT 31 % (39-51); HEMOGLOBIN 10.8 g/dL (13.5-17.5); LYMPHOCYTES # (AUTO) 1.4 /CMM (0.8-4.8); LYMPHOCYTES % (AUTO) 19.5 % (20.0-44.0); MEAN CORPUSCULAR HEMOGLOBIN 33 PG (26.0-33.0); MEAN CORPUSCULAR HGB CONC 35 g/dl (31.0-36.0); MEAN CORPUSCULAR VOLUME 94 fL (80-96); MONOCYTES # (AUTO) 0.5 /CMM (0.1-1.30); NEUTROPHILS # (AUTO) 5.1 /CMM (1.8-8.9); NEUTROPHILS % (AUTO) 67.9 % (43.0-81.0); PLATELET COUNT (AUTO) 397 /CMM (150-450); RDW COEFFICIENT OF VARIATION 15.1 (11.5-15.0); RED BLOOD CELL COUNT(AUTO) 3.34 MIL/uL (4.5-6.0); WHITE BLOOD COUNT (AUTO) 7.4 K/uL (4.3-11.0)
[2017-10-01 12:34] LABS: BILIRUBIN,URINE SMALL (NEGATIVE); BLOOD, URINE Negative Ery/uL (NEGATIVE); KETONES,URINE Trace (NEGATIVE); LEUKOCYTE ESTERASE ,URINE Negative (NEGATIVE); NITRITE, URINE Negative (NEGATIVE); PROTEIN,URINE Trace mg/dl (NEGATIVE); UGLUCOSE Negative (NEGATIVE); UROBILINOGEN,URINE 0.2 EU/dL (0.2)
[2017-10-01 12:36] LABS: APPEARANCE,URINE Hazy (CLEAR); COLOR,URINE Dark Yellow (YELLOW)
[2017-10-01 12:41] LABS: CALCIUM, SERUM 8.4 mg/dL (8.5-10.1); CARBON DIOXIDE 21 mmol/L (21-32); CHLORIDE 110 mmol/L (98-107); CREATININE 0.8 mg/dL (0.6-1.3); GLUCOSE 98 mg/dL (74-106); POTASSIUM 3.5 mmol/L (3.5-5.1); SODIUM SERUM 142 mmol/L (136-145); UREA NITROGEN, BLOOD 13 mg/dL (7-18)
[2017-10-01] MEDS ORDERED: OLANZAPINE 5 MG TABLET ONE (12:41)
[2017-10-01 12:45] LABS: BACTERIA,URINE None seen /HPF (None Seen); RBC,URINE 0-3 /HPF (0-2); SQUAMOUS EPITHELIAL CELL,UR Few /HPF (None Seen)
[2017-10-01 12:46] LABS: ALANINE AMINOTRANSFERASE 53 U/L (12-78); ALBUMIN 2.6 g/dL (3.4-5.0); ALKALINE PHOSPHATASE 80 U/L (46-116); ASPARTATE AMINOTRANSFERASE 29 U/L (15-37); BILIRUBIN,TOTAL 0.2 mg/dL (0.2-1.0); TOTAL PROTEIN, SERUM 7.1 g/dL (6.4-8.2)
[2017-10-01 12:46] LABS: URINE AMORPHOUS URATE Moderate /HPF (None Seen)
[2017-10-01 12:47] LABS: ACETAMINOPHEN 0 ug/ml (10-30); ALCOHOL, BLOOD < 3 mg/dL (0-0)
[2017-10-01 12:48] LABS: SALICYLATE 29.9 mg/dL (2.8-20.0)
[2017-10-01] MEDS ORDERED: OLANZAPINE 5 MG TABLET PO ONE (13:00)
[2017-10-01] MEDS ORDERED: IV NS 0.9% 1,000 ML BAG IV ONE (14:00)
--- NOTE | 2017-10-01 14:26 | NUR ---
CALLED [facility] WEDGER WAS PAGED.
[2017-10-01] MEDS ORDERED: ACTIVATED CHARCOAL 25 GM/120 ML TUBE PO ONE (14:30)
[2017-10-01] MEDS ORDERED: CHARCOAL/SORBITOL SOLUTION 25 G/120 ML TUBE ONE (14:30)
[2017-10-01 15:30] LABS: INR 1.06 (0.85-1.15)
[2017-10-01 15:34] LABS: CARBON DIOXIDE 25 mmol/L (21-32); CHLORIDE 113 mmol/L (98-107); CREATININE 0.7 mg/dL (0.6-1.3); GLUCOSE 97 mg/dL (74-106); POTASSIUM 3.5 mmol/L (3.5-5.1); SODIUM SERUM 144 mmol/L (136-145); UREA NITROGEN, BLOOD 11 mg/dL (7-18)
[2017-10-01 15:45] LABS: TROPONIN I < 0.017 ng/mL (0.00-0.056)
[2017-10-01 17:45] VITALS: BP 98/66
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
[2017-10-01] MEDS ORDERED: ONDANSETRON HCL/PF 4 MG/2 ML VIAL IVP PRN (18:30)
[2017-10-01] MEDS ORDERED: Z GUARD REMEDY 2 OZ OINT TP PRN (18:30)
[2017-10-01] MEDS: IV NS 0.9% 1,000 ML IV PRN (18:39)
--- NOTE | 2017-10-01 19:23 | NUR ---
MS RN OPENING NOTE RECEIVE PATIENT AWAKE IN BED, A/O X2, NO C/O OF PAIN. NO SOB OR DISTRESS NOTED, CALL LIGHT WITHIN REACH. SAFETY MEASURES IMPLEMENTED. WILL CONTINUE TO MONITOR THROUGHOUT SHIFT.
[2017-10-01 20:00] VITALS: BP 104/71
--- NOTE | 2017-10-01 21:35 | NUR ---
RECEIVED CALL FROM [facility] SPOKE TO GIA (PHARMACIST) RECOMMENDED TO DRAW SALICYLATE LEVEL EVERY 4 HOURS UNTIL REACH NORMAL LEVEL (PEAK LEVEL) NOTED WILL RELAY HOSPITALIST GRIEVANCE COORDINATOR
--- NOTE | 2017-10-01 21:50 | NUR ---
PAGED HOSPITALIST MOTION GRAPHICS DESIGNER SPOKE TO ROMMEL ANDRADE TO ORDER LAB DRAW FOR SALICYLATE EVERY 4 HOURS UNTIL NORMAL LEVEL REACH OR PEAK LEVEL PER PROTOCOL READ BACK AND VERIFIED ORDERS NOTED AND CARRIED OUT
--- NOTE | 2017-10-01 22:41 | NUR ---
KEEP ON PAGING LAB ORDERS OF SALICYLATE KEEP CANCELING THE ORDERS
[2017-10-01] MEDS: ACETAMINOPHEN 325 MG TABLET PO PRN (23:04)
--- NOTE | 2017-10-01 23:47 | NUR ---
CALLED [facility] [phone] REPORTED TO (ESTELITA) PHARMACIST LATEST SALICYLATE LEVEL 19.9 OF THE PT PER ESTELITA 1 MORE DRAW OF SALICYLATE AROUND 1 AM TO MAKE SURE EVERYTHING OKAY THEN STOP IF NORMALIZE.
[2017-10-02] VITALS: BP 93/60
--- NOTE | 2017-10-02 02:13 | NUR ---
[facility] SPOKE TO RICKY PHARMACIST RELAYED RECENT SALICYLATES LEVEL 18.0 PER MS RICKY NO MORE DRAW OF SALICYLATE LEVEL. READ BACK AND VERIFIED. RAMÍREZ BLISS NOTIFIED Addendum: 10/02/17 at 0221 by NIMA RESTREPO RN AND AGREED
[2017-10-02 04:00] VITALS: BP 99/56
--- NOTE | 2017-10-02 06:32 | NUR ---
MS RN CLOSING NOTES PT WALKING IN THE HALLWAY, A/O X 3, STABLE CONDITION. TOLERATING ROOM AIR 98%. RESPIRATION EVEN AND UNLABORED. KEPT CLEAN AND DRY AND COMFORTABLE, ALL NURSING CARE RENDERED. NEEDS ATTENDED AND ANTICIPATED, 1:1 SITTER, NO COMPLAINS OF PAIN/CHEST PAIN. ON LOW BED AT ALL TIMES TO ENSURE SAFETY. NO S/S OF BLEEDING. SAFE HAZARD FREE ENVIRONMENT PROVIDED. CALL LIGHT WITHIN EASY TO REACH. WILL ENDORSE NEXT SHIFT CONTINUITY OF CARE.
[2017-10-02 06:34] LABS: BASOPHILS % (AUTO) 0.6 % (0.0-2.0); EOSINOPHILS % (AUTO) 6.6 % (0.0-6.0); HEMATOCRIT 32 % (39-51); HEMOGLOBIN 10.6 g/dL (13.5-17.5); LYMPHOCYTES # (AUTO) 1.8 /CMM (0.8-4.8); LYMPHOCYTES % (AUTO) 25.3 % (20.0-44.0); MEAN CORPUSCULAR HEMOGLOBIN 32 PG (26.0-33.0); MEAN CORPUSCULAR HGB CONC 33 g/dl (31.0-36.0); MEAN CORPUSCULAR VOLUME 98 fL (80-96); MONOCYTES # (AUTO) 0.5 /CMM (0.1-1.30); MONOCYTES % (AUTO) 7.1 % (2.0-12.0); NEUTROPHILS # (AUTO) 4.4 /CMM (1.8-8.9); NEUTROPHILS % (AUTO) 60.4 % (43.0-81.0); PLATELET COUNT (AUTO) 418 /CMM (150-450); RDW COEFFICIENT OF VARIATION 16.3 (11.5-15.0); WHITE BLOOD COUNT (AUTO) 7.3 K/uL (4.3-11.0)
[2017-10-02 06:42] LABS: THYROID STIMULATING HORMONE 1.484 uIU/mL (0.358-3.74)
[2017-10-02 06:44] LABS: ALBUMIN 2.2 g/dL (3.4-5.0); BILIRUBIN,TOTAL 0.2 mg/dL (0.2-1.0); CREATININE 0.7 mg/dL (0.6-1.3); MAGNESIUM 1.8 mg/dL (1.8-2.4); PHOSPHORUS 3.2 mg/dL (2.5-4.9); POTASSIUM 3.6 mmol/L (3.5-5.1); TOTAL PROTEIN, SERUM 6.5 g/dL (6.4-8.2)
--- NOTE | 2017-10-02 07:00 | NUR ---
RN NOTES RECEIVED PT ON BED, A/OX2 , ON RA , RESPIRATION EVEN AND UNLABORED, NO SOB NOTED, SITTER AT THE BEDSIDE FOR PT SAFETY , NO COMPLAINS OF PAIN/CHEST PAIN. LAC IV SITE G 20 CDI, WITH NS AT 75CC/HR RUNNING , SR UP x2, CALL LIGHT WITHIN EASY REACH, BED LOCKED AND IN LOWEST POSITION, AT ALL TIMES TO ENSURE SAFETY. SAFE HAZARD FREE ENVIRONMENT PROVIDED. CONTINU TO MONITOR .
[2017-10-02 08:00] VITALS: BP 115/66
[2017-10-02] MEDS: ACETAMINOPHEN 325 MG TABLET PO PRN (08:41)
--- NOTE | 2017-10-02 08:49 | NUR ---
WOUND CARE CONSULT: PT AMBULATORY AND CONTINENT WITH PEELING SKIN ON BACK AND RT HIP AREA, PRESENT ON ADMISSION. PT STATES IS HOMELESS AND HAS BEEN IN THE SUN A LOT. RECOMMENDATIONS MADE FOR SKIN CARE AND PROTECTION. DISCUSSED WITH NURSING STAFF. WILL SEE PRN.
[2017-10-02] MEDS ORDERED: LORAZEPAM INJ 2 MG/ML VIAL IM ONE (10:30)
[2017-10-02] MEDS ORDERED: diphenhydrAMINE HCL 50 MG/ML VIAL IM ONE (10:30)
[2017-10-02] MEDS ORDERED: BENZTROPINE MESYLATE (1 MG) 1 MG TABLET PO PRN (10:30)
[2017-10-02] MEDS ORDERED: HALOPERIDOL 5 MG TABLET PO PRN (10:30)
[2017-10-02] MEDS ORDERED: LORAZEPAM 1 MG TABLET PO PRN (10:30)
[2017-10-02] MEDS ORDERED: HALOPERIDOL LACTATE INJ 5 MG/ML VIAL IM ONE (10:30)
--- NOTE | 2017-10-02 10:30 | NUR ---
RN NOTES PT VERY AGITATED AND LOUD AND WANT TO GET OUT OF THE ROOM AND SHOUTING AT PEOPLE , DR HOYOS ON THE FLOOR SEEING PT , NEW ORDER RECEIVED , CONTINUE TO MONITOR .
[2017-10-02] MEDS: MINERAL OIL/PETROLATUM,WHITE 120 GM JAR TP SCH ×2 (10:34→16:40)
[2017-10-02] MEDS ORDERED: LORAZEPAM INJ 2 MG/ML VIAL IV ONE (11:00)
[2017-10-02 12:00] VITALS: BP 105/52
--- NOTE | 2017-10-02 15:00 | NUR ---
Social service consult requested by [facility] ANITRA Rayo for homelessness. Pt. is a 62 year old male who was admitted to [facility] for aspirin overdose. SW met with pt. bedside. Pt. is alert and oriented x 2. Pt. was given Haldol and Benadryl that was ordered by psychiatrist Dr. Hernandez. Pt. is unable to provide meaningful information at this time. Per ANITRA Rayo, pt. was seen by Dr. Hernandez, psychiatrist who informed her that once pt. is medically cleared, pt. will be evaluated by crisis team and if found appropriate, will be transferred to GPS. No other social service needs are required at this time. SW is available, if needed. SW updated pt's case pravin Winslow regarding tentative discharge plan.
--- NOTE | 2017-10-02 15:30 | NUR ---
RN NOTES PT MEDICALLY CLEAR TO GO TO PSYCH UNIT PER BROOKS PUENTE RESCUE WORKER, CRISIS TEAM PAGED AND NOTIFIED TO EVALUATE PT PER DR ROMAIN BELLAMY .
[2017-10-02 16:00] VITALS: BP 114/61
[2017-10-02] MEDS: IV NS 0.9% 1,000 ML IV PRN (17:43)
--- NOTE | 2017-10-02 18:14 | NUR ---
RN NOTES AWAITING FOR CRISIS TEAM TO SEE THE PT , VSS STABLE , SITTER AT THE BEDSIDE FOR PT SAFETY , SR UP x3, CALL LIGHT WITHIN EASY REACH , WILL ENDORSE TO STRATEGIC ADVISOR NURSE FOR ALEX.
--- NOTE | 2017-10-02 18:30 | NUR ---
RN NOTES CRISIS TEAM MINO IN ER NOTIFIED REGARDING 51-50 EVALUATION
--- NOTE | 2017-10-02 19:15 | NUR ---
PORTFOLIO MANAGER NOTE RECEIVED PT AOX1-2, RESTING COMFORTABLY IN BED, NO S/SX OF RESPIRATORY OR CARDIAC DISTRESS, ON RA NO S/SX OF CARDIAC OR RESPIRATORY DISTRESS, ON TELE SR, CONTINENT, BLE EDEMA, LAC#20G PATENT, CDI, WITH NS AT 75ML/HR, FLUSHING WELL, CALL LIGHT WITHIN REACH, BED IN LOW, LOCKED POSITION, WILL CONTINUE TO MONITOR FOR ANY CHANGES OF CONDITION. AWAITING CRISIS TEAM FOR 5150 EVALUATION.
[2017-10-02 20:00] VITALS: BP 123/61
--- NOTE | 2017-10-02 21:05 | NUR ---
FAN ENGINE ENGINEER NOTE REPORT GIVEN TO ALISTAIR IN GPS FOR TRANSFER. PT IA AOX2, AGITATED, BEING ESCORTED BY CORRIDOR REDEVELOPMENT MANAGER VIA W/C AND SECURITY. PT HAS ALL BELONGINGS, REFUSED TO SIGN ANY PAPERWORK. PT IS IN NO ACUTE DISTRESS, NO CARDIAC OR RESPIRATORY DISTRESS, NO PAIN REPORTED.
== END 2017-10-02 21:10 | DRG 918 ==
LOC: ER 11:56 → TELE1 17:06
PROVIDERS: ADMIT Nurse Practitioner Acute Care; ATTEND Nurse Practitioner Acute Care
DX: T39.011A Poisoning by aspirin, accidental (unintentional), initial encounter (principal); F31.2 Bipolar disorder, current episode manic severe with psychotic features; E44.0 Moderate protein-calorie malnutrition; I10 Essential (primary) hypertension; M19.90 Unspecified osteoarthritis, unspecified site; Y92.410 Unspecified street and highway as the place of occurrence of the external cause; Z59.0 Homelessness; I67.2 Cerebral atherosclerosis; R26.9 Unspecified abnormalities of gait and mobility; D63.8 Anemia in other chronic diseases classified elsewhere; Z87.891 Personal history of nicotine dependence; I25.2 Old myocardial infarction
CPT/HCPCS: 36415; 71045-TC; 80048-TC; 80053-TC; 80061-TC; 80076-TC; 80305; 81000-TC; 83540-TC; 83735-TC; 84100-TC; 84443-TC; 84484-TC; 85025-TC; 85610-TC; 87081-TC; 93307-TC; A4606; G0480; J1200; J1630; J2060; J7030; Z7610

== ENCOUNTER 2017-10-02 22:28 | Inpatient (IN) | payer MEDICARE, MEDICAID ==
[~2017-10-02] VITALS: Ht 182.9 cm; Wt 101.6 kg
--- NOTE | 2017-10-02 02:37 | NUR ---
ADMITTED FROM [facility] BROUGHT IN BY STAFF VIA WHEELCHAIR AROUND 2114. ADMITTED ON 5149 HOLD FOR GD. UPON FACE TO FACE, PATIENT IS A/O X2, WITH PERIODS OF CONFUSION, ANXIOUS AND RESTLESS, DISORGANIZED AND DELUSIONAL. 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 HE HAS EPISODES OF SCREAMING, YELLING AND AGITATION. HE IS IMPULSIVE. ON ADMISSION PATIENT REFUSED TO GO TO HIS ASSIGNED BED, THAT HE DOESN'T LIKE TO STAY IN THE UNIT. PATIENT VERY UNCOOPERATIVE, LOUD, YELLING, SCREAMING, VERBALLY ABUSIVE, AGGRESSIVE, BELLIGERENT. PATIENT AWAKE, ALERT ORIENTED X3, AMBULATORY. REFUSED SKIN/BODY ASSESSMENT AND MRSA SCREEN DONE. PATIENT LIVES ALONE/HOMELESS, NO FAMILY MEMBER TO NOTIFY OF ADMISSION, NOTHING GIVEN PER MED. RECORD. PATIENT HAS NO CURRENT HOME MEDS. BELONGINGS WERE INVENTORIED AND CHECKED FOR CONTRABAND. PATIENT IS UNDER THE PSYCHIATRIC CARE OF DR. JACKSON AND MEDICAL CARE OF DR. VENTURA. BED LOCKED AND PLACED ON LOWEST POSITION. WILL CONTINUE TO MONITOR Q 15 MINS. TO MAINTAIN SAFETY
[2017-10-02] MEDS ORDERED: MAG HYDROX/AL HYDROX/SIMETH 30 ML UDC PO PRN (23:00)
[2017-10-02] MEDS ORDERED: MAGNESIUM HYDROXIDE 30 ML UDC PO PRN (23:00)
[2017-10-03] MEDS: ACETAMINOPHEN 325 MG TABLET PO PRN (06:39)
--- NOTE | 2017-10-03 06:39 | NUR ---
C/O GEN. BODY ACHES, TYLENOL 650 MG TAB PO GIVEN.
--- NOTE | 2017-10-03 06:39 | NUR ---
MRSA SCREEN DONE
[2017-10-03] MEDS ORDERED: diphenhydrAMINE HCL 50 MG/ML VIAL IM STA (08:20)
[2017-10-03] MEDS ORDERED: HALOPERIDOL LACTATE INJ 5 MG/ML VIAL IM STA (08:20)
[2017-10-03] MEDS ORDERED: LORAZEPAM INJ 2 MG/ML VIAL IM STA (08:20)
--- NOTE | 2017-10-03 08:25 | NUR ---
GPS RN NOTE: PT EXTREMELY AGITATED, THREATENING STAFF OF HITTING THE WALL ,SCARING PATIENTS ,YELLING AND SCREAMING PT STATED" I EAT PEOPLE, I WILL KILL ALL OF YOU" DR JACKSON NOTIFIED WITH T.O. ORDERS HALDOL 5 MG IM ONCE ,BENADRYL 25 MG IM ONCE,ATIVAN 2 MG IM ONCE . ORDER PLACED AND CARED OUT WILL CONTINUE MONITORING.
--- NOTE | 2017-10-03 08:59 | NUR ---
RN NOTE: MANUEL ORDERED. PATIENT GIVEN HALDOL 5MG, BENADRYL 25MG, AND ATIVAN 2MG.
[2017-10-03] MEDS: diphenhydrAMINE HCL 25 MG CAPSULE PO SCH ×2 (13:57→16:48)
[2017-10-03] MEDS: HALOPERIDOL 5 MG TABLET PO SCH ×2 (13:57→16:48)
[2017-10-03 16:00] VITALS: BP 104/62
[2017-10-03] MEDS: DIVALPROEX SODIUM 500 MG TABLET.DR PO SCH (16:48)
--- NOTE | 2017-10-03 19:30 | NUR ---
GPS RN NOTE, RECEIVED PATIENT AWAKE AND IN BED, NO S/S OR COMPLAINTS OF PAIN AT THIS TIME. PATIENT IS DISPLAYING NO S/S OF APPARENT DISTRESS AT THIS TIME. PATIENT BREATHING IS UNLABORED WITH EQUAL RISE AND FALL CHEST. PATIENT IS ALERT AND ORIENTED X 3 ON ROOM AIR WITH A SPO2 98 %. PATIENT IS MED COMPLIANT, DISORGANIZED, COOPERATIVE, ANXIOUS, VERBALLY ABUSIVE, ANGRY AT TIMES, AND NEEDS REORIENTATION. PATIENT DENIES SUICIDE IDEATIONS AND HOMICIDAL IDEATIONS AT THIS TIME. PATIENT EDUCATED ON THE USE OF THE CALL SANABRIA. PATIENT BED SIDE RAILS UP X 2 FOR SAFETY, BED IS LOCKED AND LOW, WILL CONTINUE TO MONITOR AND MAINTAIN SAFETY WITH THE HELP OF SAFE.
[2017-10-03 20:01] VITALS: BP 126/83
[2017-10-03] MEDS: ZOLPIDEM TARTRATE 10 MG TABLET PO PRN (21:44)
--- NOTE | 2017-10-03 21:44 | NUR ---
GPS RN NOTE, PATIENT HAS A COMPLAINT OF NOT BEING ABLE TO SLEEP AND IS REQUESTING AMBIEN AT THIS TIME. PATIENT VITAL SIGNS ARE STABLE. GAVE AMBIEN 10 MG PO HS ORDERED. WILL REASSESS FOR INSOMNIA AND I WILL CONTINUE TO MONITOR THIS PATIENT.
--- NOTE | 2017-10-04 00:43 | NUR ---
GPS RN NOTE, PATIENT HAS A COMPLAINT OF LOWER BACK PAIN AT 4 OUT 10 ON THE PAIN SCALE AND IS REQUESTING MEDICATION AT THIS TIME. PATIENT VITAL SIGNS ARE STABLE. PAGED [facility] AND INFORMED ANTHONY YOUNG OF MY FINDINGS. ANTHOYN YOUNG ORDERED. TO GIVE NORCO 5-325 ONE TAB ONCE PRN AND TO ENDORSE THIS COMPLAINT TO AM SHIFT NURSE AND MD. ALL ORDERS NOTED AND CARRIED OUT. WILL CONTINUE TO MONITOR THIS PATIENT.
[2017-10-04] MEDS ORDERED: HYDROCODONE/APAP 5/325MG 1 EACH TABLET PO PRN (01:00)
--- NOTE | 2017-10-04 02:42 | NUR ---
GPS RN NOTE, PATIENT HAS A COMPLAINT OF LOWER BACK PAIN AT 6 OUT 10 ON THE PAIN SCALE AND IS REQUESTING NORCO AT THIS TIME. PATIENT VITAL SIGNS ARE STABLE. GAVE NORCO 5-325 1 TAB ONCE PRN ORDERED. WILL REASSESS FOR PAIN AND I WILL CONTINUE TO MONITOR THIS PATIENT.
[2017-10-04] MEDS: ACETAMINOPHEN 325 MG TABLET PO PRN (04:50)
[2017-10-04] MEDS: LORAZEPAM 0.5 MG TABLET PO PRN (04:50)
--- NOTE | 2017-10-04 04:50 | NUR ---
GPS RN NOTE, PATIENT HAS A COMPLAINT OF LOWER BACK PAIN AT 3 OUT 10 ON THE PAIN SCALE AND IS REQUESTING TYLENOL AT THIS TIME. PATIENT VITAL SIGNS ARE STABLE. GAVE TYLENOL 650 MG PO Q6HR PRN ORDERED. WILL REASSESS FOR PAIN AND I WILL CONTINUE TO MONITOR THIS PATIENT.
--- NOTE | 2017-10-04 04:50 | NUR ---
GPS RN NOTE, PATIENT HAS A COMPLAINT OF FEELING ANXIOUS AND IS REQUESTING ATIVAN AT THIS TIME. PATIENT VITAL SIGNS ARE STABLE. GAVE ATIVAN 0.5MG PO Q6HR PRN ORDERED. WILL REASSESS FOR ANXIETY AND I WILL CONTINUE TO MONITOR THIS PATIENT.
[2017-10-04 08:00] VITALS: BP 115/64
[2017-10-04] MEDS: DIVALPROEX SODIUM 500 MG TABLET.DR PO SCH ×2 (08:11→16:30)
[2017-10-04] MEDS: diphenhydrAMINE HCL 25 MG CAPSULE PO SCH ×3 (08:11→16:30)
[2017-10-04] MEDS: HALOPERIDOL 5 MG TABLET PO SCH ×3 (08:12→16:30)
--- NOTE | 2017-10-04 12:29 | NUR ---
INITIAL DISCHARGE PLAN: Pt wishes to be discharged to a SNF. Per pts brother Miguel [phone] he is unable to care for him at home due to his mental illness and confirmed pt needs placement. SW will refer pt to [facility] Address: [place] [address] . ZORAIDA will help form a safe and proper discharge in collaboration with .
--- NOTE | 2017-10-04 12:45 | NUR ---
ZORAIDA faxed SN[facility] Address: [place] [address] fax: [phone] for review.
--- NOTE | 2017-10-04 13:50 | NUR ---
KELLY/ [employer] SERVICE NOTE: SW contacted [employer] [phone] and was transferred to the [employer] and spoke with Hardware Trainer Rosalia Yun to report pt stated during his face to face psych evaluation that he was hired to kill the [employer]. Rosalia informed ZORAIDA that she would notify the [place] [employer] service office and their agents would contact SW to schedule an interview with pt. Rosalia stated that SW would receive a phone call within the next couple of days.
[2017-10-04 16:00] VITALS: BP 110/66
[2017-10-04 20:00] VITALS: BP 113/60
[2017-10-05] MEDS: HYDROCODONE/APAP 5/325MG 1 EACH TABLET PO PRN (02:50)
[2017-10-05 08:00] VITALS: BP 119/90
[2017-10-05] MEDS: DIVALPROEX SODIUM 500 MG TABLET.DR PO SCH ×2 (08:09→16:15)
[2017-10-05] MEDS: diphenhydrAMINE HCL 25 MG CAPSULE PO SCH ×3 (08:09→16:16)
[2017-10-05] MEDS: HALOPERIDOL 5 MG TABLET PO SCH ×3 (08:09→16:15)
--- NOTE | 2017-10-05 14:30 | NUR ---
KELLY/ SECRET SERVICE NOTE: SW received a phone call from Mold Maker Jeff Ramos [phone] stating that he would be coming on Sunday October 08, 2017 at 11:00am to conduct an interview with pt.
[2017-10-05 16:00] VITALS: BP 113/62
[2017-10-05 19:30] VITALS: BP 109/63
[2017-10-05 20:00] VITALS: BP 109/63
[2017-10-06 08:00] VITALS: BP 120/71
[2017-10-06] MEDS: DIVALPROEX SODIUM 500 MG TABLET.DR PO SCH ×2 (09:56→18:21)
[2017-10-06] MEDS: diphenhydrAMINE HCL 25 MG CAPSULE PO SCH ×3 (09:56→18:21)
[2017-10-06] MEDS: HALOPERIDOL 5 MG TABLET PO SCH ×3 (09:57→18:21)
[2017-10-06] MEDS: HYDROCODONE/APAP 5/325MG 1 EACH TABLET PO PRN (10:38)
[2017-10-06 16:15] VITALS: BP 99/69
--- NOTE | 2017-10-06 18:00 | NUR ---
taking meds as ordered and compliant. states missing .
[2017-10-06 19:30] VITALS: BP 125/58
[2017-10-06] MEDS: ZOLPIDEM TARTRATE 10 MG TABLET PO PRN (22:18)
[2017-10-06] MEDS: LORAZEPAM 0.5 MG TABLET PO PRN (22:18)
--- NOTE | 2017-10-06 22:20 | NUR ---
senior controls engineer notes pt remains isolate to his room but interact when you talked to him . ativan given for his anxiety and ambien to helped him sleep. bed alarm set for safety. will continue monitoring.
--- NOTE | 2017-10-07 | NUR ---
elevator service technician notes pt sleeping comfortably in bed without any acute distress noted. will continue monitoring.
[2017-10-07 08:00] VITALS: BP 123/70
[2017-10-07] MEDS: HALOPERIDOL 5 MG TABLET PO SCH ×3 (08:48→17:02)
[2017-10-07] MEDS: diphenhydrAMINE HCL 25 MG CAPSULE PO SCH ×3 (08:48→17:02)
[2017-10-07] MEDS: DIVALPROEX SODIUM 500 MG TABLET.DR PO SCH ×2 (08:48→17:02)
[2017-10-07] MEDS: HYDROCODONE/APAP 5/325MG 1 EACH TABLET PO PRN (12:25)
--- NOTE | 2017-10-07 12:25 | NUR ---
[id number]: GAVE NORCO 5/325 MG PO DUE TO GENERALIZED PAIN 10/19 UPON PT REQUEST AND WILL CONTINUE TO MONITOR FOR EFFECTIVENESS OF MEDICATION
[2017-10-07 16:05] VITALS: BP 119/65
[2017-10-07 19:44] VITALS: BP 119/59
--- NOTE | 2017-10-07 20:00 | NUR ---
GPS RN NOTE, RECEIVED PATIENT AWAKE AND IN BED, NO S/S OR COMPLAINTS OF PAIN AT THIS TIME. PATIENT IS DISPLAYING NO S/S OF APPARENT DISTRESS. PATIENT BREATHING IS UNLABORED WITH EQUAL RISE AND FALL CHEST. PATIENT IS ALERT AND ORIENTED X 3 ON ROOM AIR WITH A SPO2 96 %. PATIENT IS COOPERATIVE, ISOLATIVE AND WITHDRAWN, GUARDED. PATIENT DENIES SUICIDE IDEATIONS AND HOMICIDAL IDEATIONS AT THIS TIME. PATIENT EDUCATED ON THE USE OF THE CALL SANABRIA. PATIENT BED SIDE RAILS UP X 2 FOR SAFETY, BED IS LOCKED AND LOW, WILL CONTINUE TO MONITOR AND MAINTAIN SAFETY WITH THE HELP OF SAFE.
--- NOTE | 2017-10-07 22:00 | NUR ---
BLOOD SUGAR 117MG/DL, NO COVERAGE REQUIRED AT THIS TIME. Addendum: 10/07/17 at 2243 by ANGELY YAN RN DISREGARD THIS NOTE.
[2017-10-08 08:00] VITALS: BP 125/65
[2017-10-08] MEDS: diphenhydrAMINE HCL 25 MG CAPSULE PO SCH ×5 (08:22→16:34)
[2017-10-08] MEDS: DIVALPROEX SODIUM 500 MG TABLET.DR PO SCH ×4 (08:22→16:34)
[2017-10-08] MEDS: HALOPERIDOL 5 MG TABLET PO SCH ×5 (08:22→16:34)
--- NOTE | 2017-10-08 13:51 | NUR ---
KELLY/ SECRET SERVICE NOTE: Pt met with Frit Mixer And Burner Jeff Ramos [phone] on this day at 1:00pm for an interview.
[2017-10-08 16:00] VITALS: BP 125/73
[2017-10-08 19:50] VITALS: BP 117/69
--- NOTE | 2017-10-08 20:15 | NUR ---
GPS RN NOTE, RECEIVED PATIENT AWAKE AND LYING IN BED, NO S/S OR COMPLAINTS OF PAIN AT THIS TIME. NO S/S OF APPARENT DISTRESS. BREATHING UNLABORED WITH EQUAL RISE AND FALL CHEST. PATIENT IS ALERT AND ORIENTED X 3 ON ROOM AIR WITH A SPO2 96%. PATIENT IS WITHDRAWN, GUARDED, ANXIOUS, BUT COOPERATIVE AND MAKES NEEDS KNOWN APPROPRIATELY. PATIENT DENIES SUICIDE IDEATIONS AND HOMICIDAL IDEATIONS AT THIS TIME. PATIENT EDUCATED ON THE USE OF THE CALL SANABRIA. PATIENT BED SIDE RAILS UP X 2 FOR SAFETY, BED IS LOCKED AND LOW, WILL CONTINUE TO MONITOR AND MAINTAIN SAFETY.
[2017-10-08] MEDS: ZOLPIDEM TARTRATE 10 MG TABLET PO PRN (23:54)
--- NOTE | 2017-10-09 01:05 | NUR ---
WOKE ANXIOUS, C/O SEVERE INDIGESTION, CONSTIPATION, AND INSOMNIA. PRN BENJAMIN MEJIA, MOM GIVEN PER PT REQUEST WITH EFFECTIVENESS. PT SLEEPING AT THIS TIME.
[2017-10-09 08:00] VITALS: BP 111/66
[2017-10-09] MEDS: HALOPERIDOL 5 MG TABLET PO SCH ×3 (08:35→16:41)
[2017-10-09] MEDS: diphenhydrAMINE HCL 25 MG CAPSULE PO SCH ×3 (08:35→16:41)
[2017-10-09] MEDS: DIVALPROEX SODIUM 500 MG TABLET.DR PO SCH ×2 (08:35→16:41)
--- NOTE | 2017-10-09 08:35 | NUR ---
TOI-UC-ARAVR: PT REFUSED BENADRYL 25 MG, HALDOL 5 MG, DEPAKOTE 500 MG. EVEN AFTER EXPLAINING THE BENEFITS AND RISK OF THE MEDICATIONS
--- NOTE | 2017-10-09 09:26 | NUR ---
TARPRO/ SECRET SERVICE NOTE: Foreign Exchange Student Coordinator Daleeileen Raoms [phone] contacted SW requesting a picture of pt in the hospital. SW informed Agent Rachel that taking a picture of pt and sending it to him via email is a HIPAA violation thus SW could not fulfill his request. Agent Rachel understood and stated he would come tomorrow 10/10/17 at 10:00am to take picture of pt.
[2017-10-09] MEDS ORDERED: DIVALPROEX SODIUM 500 MG TABLET.DR PO ONE (10:36)
[2017-10-09] MEDS ORDERED: HALOPERIDOL 5 MG TABLET PO ONE (11:00)
[2017-10-09] MEDS ORDERED: diphenhydrAMINE HCL 25 MG CAPSULE PO ONE (11:00)
[2017-10-09 16:00] VITALS: BP 117/64
[2017-10-09 20:26] VITALS: BP 112/58
[2017-10-10 08:00] VITALS: BP 120/70
[2017-10-10] MEDS: diphenhydrAMINE HCL 25 MG CAPSULE PO SCH (08:24)
[2017-10-10] MEDS: HALOPERIDOL 5 MG TABLET PO SCH (08:24)
[2017-10-10] MEDS: DIVALPROEX SODIUM 500 MG TABLET.DR PO SCH (08:25)
--- NOTE | 2017-10-10 09:59 | NUR ---
KELLY/ SECRET SERVICE NOTE: Load Out Person Jeff Ramos [phone] came to visit pt to take a picture of him and follow-up. Pt will be discharged on this present day and Load Out Person will forward report to [facility].
--- NOTE | 2017-10-10 11:32 | NUR ---
pt discharge by dr. bajwa. quality audit representative robin agrees with discharge. pt is going to [facility] [address] [facility] [phone] via [facility] ambulace trip #[phone]. pts brother regina [phone] has been notified and agrees with discharge plan. pt is alert oriented x 4. calm and cooperative noted. no acute distress noted. vital sign stable. skin intact. med reconciled. belongings returned to patient. left in stable condition.
--- NOTE | 2017-10-10 13:20 | NUR ---
DISCHARGE NOTE: Pt was discharged at 11:00am to [facility] [address] [facility] [address] via [facility] ambulance trip # [phone]. Pts brother Miguel [phone] has been notified and agrees with discharge plan. Pt denied suicidal/homicidal ideations and denied visual/auditory hallucinations. Patient was provided referrals to address his substance use. Patient was referred to the [facility] [address] [place] [address] / , [facility] [address] [place] [address] and [facility] [address] [place] [address] . For smoking cessation, patient will be referred to the [employer] or [employer] [id number]. Pt will be under the medical care of Turret Punch Operator: Dr. Marcus Roman [address] [address] Phone 1: and Psychiatrist: Dr. Familia Flores [address] [place] [address] [phone]. The multidisciplinary exitcare form was done, printed, signed, and given to the patient.
== END 2017-10-10 11:36 | DRG 885 ==
LOC: GPS 22:28
PROVIDERS: ADMIT Psychiatry & Neurology Psychiatry; ATTEND Nurse Practitioner Acute Care
DX: F31.2 Bipolar disorder, current episode manic severe with psychotic features (principal); F23 Brief psychotic disorder; E44.0 Moderate protein-calorie malnutrition; F41.9 Anxiety disorder, unspecified; I10 Essential (primary) hypertension; D64.9 Anemia, unspecified; Z68.30 Body mass index [BMI] 30.0-30.9, adult; Z87.891 Personal history of nicotine dependence; G89.29 Other chronic pain; M54.9 Dorsalgia, unspecified; E66.9 Obesity, unspecified; E88.09 Other disorders of plasma-protein metabolism, not elsewhere classified; Z59.0 Homelessness; F19.10 Other psychoactive substance abuse, uncomplicated
CPT/HCPCS: 36415; 80164-TC; 87081-TC; J1200; J1630; J2060; Q0163